=== PATIENT | male | born 1960 | race Caucasian/White ===

== ENCOUNTER 2018-05-05 05:46 | Day surgery (SDC) | payer BC ==
[2018-05-01 15:18] LABS: BASOPHILS % (AUTO) 0.2 % (0-1); EOSINOPHILS # (AUTO) 0.1 X10'3 (0-0.9); LYMPHOCYTES # (AUTO) 2.1 X10'3 (1.1-4.8); LYMPHOCYTES % (AUTO) 31.5 % (21-51); MEAN CORPUSCULAR HEMOGLOBIN 29.5 PG (27.0-31.0); MEAN CORPUSCULAR HGB CONC 33.6 % (33.0-36.5); MEAN PLATELET VOLUME 7.8 FL (7.4-10.4); MONOCYTES # (AUTO) 0.6 X10'3 (0-0.9); MONOCYTES % (AUTO) 8.6 % (2-12); NEUTROPHILS % (AUTO) 58.7 % (42-75); PRE OP HEMATOCRIT 39.7 % (42.0-52.0); PRE OP HEMOGLOBIN 13.3 g/dL (14.0-17.9); PRE OP PLATELET COUNT 231 X10'3 (140-440); RED BLOOD COUNT 4.52 X10'6 (4.70-6.10); RED CELL DISTRIBUTION WIDTH 14.1 % (11.5-14.5)
[2018-05-01 15:32] LABS: ALBUMIN 3.6 G/DL (3.4-5.0); ALBUMIN/GLOBULIN RATIO 0.9 (1.1-1.5); ALKALINE PHOSPHATASE 60 IU/L (46-116); BLOOD UREA NITROGEN 15 MG/DL (7-18); CHLORIDE 101 MMOL/L (99-107); CREATININE 0.94 MG/DL (0.60-1.10); PRE OP ALT 34 U/L (30-65); PRE OP ANION GAP 6 (8-16); PRE OP AST 20 U/L (10-37); PRE OP BILIRUB, TOTAL 0.7 MG/DL (0.0-1.0); PRE OP GLUCOSE 144 MG/DL (70-104); PRE OP POTASSIUM 3.8 MMOL/L (3.4-5.1); PRE OP SODIUM 140 MMOL/L (135-145); TOTAL CARBON DIOXIDE 32.9 MMOL/L (24-32); TOTAL PROTEIN 7.7 G/DL (6.4-8.2); eGFR 83 ML/MIN
[2018-05-05] VITALS (8 sets, daily range): BP systolic 102–126; BP diastolic 62–81
[~2018-05-05] VITALS: Ht 182.9 cm; Wt 97.1 kg
[~2018-05-05 05:46] MED LIST: MULT-38 PO; famotidine 20mg tablet PO ONE; ringers solution, lacted 1,000 ML IV SCH
[2018-05-05] MEDS ORDERED: LIDOcaine 1% (10mg/ml) 2ml vial ONE (06:21)
[2018-05-05] MEDS ORDERED: cefazolin/dext.iso 2gm/50ml 50 ML IV ONE ×2 (06:50→07:30)
[2018-05-05] MEDS ORDERED: BUPIVAcaine/PF 2.5mg/ml (0.25%) 10ml vial ONE (06:54)
[2018-05-05] MEDS ORDERED: fentaNYL/PF 50MCG/1 ML 2ML syringe ONE (07:21)
[2018-05-05] MEDS ORDERED: MIDAZolam 5mg/5ml vial ONE (07:21)
[2018-05-05] MEDS ORDERED: propofol inj 20 ML IV ONE (07:23)
[2018-05-05] MEDS ORDERED: cloNIDine hcl/PF 100mcg/ml inj ONE (07:25)
[2018-05-05] MEDS ORDERED: dexamethasone sod phosphate 4mg/ml inj. ONE (07:26)
[2018-05-05] MEDS ORDERED: ROPIVAcaine 0.5% (5mg/ml) 30ml vial ONE (07:26)
[2018-05-05] MEDS ORDERED: ketorolac trometh. 30mg/ml inj. ONE (08:27)
[2018-05-05] MEDS ORDERED: ondansetron/PF 4mg/2ml inj ONE (08:27)
[2018-05-05] MEDS ORDERED: sevoflurane 250ml liquid IH ONE (08:27)
[2018-05-05] MEDS ORDERED: ringers solution, lacted 1,000 ML IV SCH (09:43)
[2018-05-05] MEDS ORDERED: meperidine/PF 25mg/ml syringe IV PRN ×3 (09:45)
[2018-05-05] MEDS ORDERED: morphine 4 MG/ML inj SYRINge IV PRN ×2 (09:45)
[2018-05-05] MEDS ORDERED: ondansetron/PF 4mg/2ml inj IV PRN (09:45)
[2018-05-05] MEDS ORDERED: proCHLORperazine 10 MG/2 ml inj IV PRN (09:45)
[2018-05-05] MEDS ORDERED: HYDROcodone/acetaminophen 10/325mg tab PO PRN (11:15)
== END 2018-05-05 12:30 | disposition home or self-care (01) ==
LOC: PAS 05:46
PROVIDERS: ATTEND Orthopaedic Surgery
DX: M75.121 Complete rotator cuff tear or rupture of right shoulder, not specified as traumatic (principal); M19.011 Primary osteoarthritis, right shoulder; G89.29 Other chronic pain; M75.21 Bicipital tendinitis, right shoulder; M94.211 Chondromalacia, right shoulder; M24.111 Other articular cartilage disorders, right shoulder; M75.51 Bursitis of right shoulder; M25.711 Osteophyte, right shoulder; G89.18 Other acute postprocedural pain; E66.9 Obesity, unspecified; K21.9 Gastro-esophageal reflux disease without esophagitis; Z88.0 Allergy status to penicillin; Z68.29 Body mass index [BMI] 29.0-29.9, adult; Z72.89 Other problems related to lifestyle; Z79.899 Other long term (current) drug therapy; Z98.890 Other specified postprocedural states
CPT/HCPCS: 23412; 23430; 29807; 29824; 29826; 36415; 64450; 80053; 85025; 93005; A6449; C1713; J0690; J0735; J1100; J1885; J2250; J2405; J2704; J3010; J3490; J7120; A7000; J2795; J7030